=== PATIENT | female | born 1995 | race African-American/Black ===

== ENCOUNTER 2021-03-19 18:55 | Emergency (ER) | payer BC ==
--- NOTE | 2021-03-19 19:35 | EDM.PDOC ---
ED HPI GENERAL MEDICAL PROBLEM - General Chief Complaint: General Stated Complaint: COVID EXPOSURE/CHEST PAIN,CHILLS,HEADACHE Time Seen by Provider: 03/19/21 19:05 Source of Information: Reports: Patient, RN Notes Reviewed History Limitations: Reports: No Limitations - History of Present Illness INITIAL COMMENTS - FREE TEXT/NARRATIVE: Patient is a 25-year-old female who presents to the ER for evaluation of her Covid symptoms/Covid exposure. Patient notes that her did test positive yesterday for COVID-19, she was tested yesterday and was negative for yesterday's purposes. Patient states that her started demonstrating symptoms on Friday, March 16, 2021. 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 States that the is going well. The patient herself is complaining of chest pain with coughing, cough, slight shortness of breath, no actual fevers, chills, body aches and generalized fatigue. She has not taken anything for pain medication or otherwise. Vital signs are stable at time of triage, O2 sats are 100% on room air, she is afebrile, and not dyspneic. 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 ED EXAM, GENERAL - Physical Exam Exam: See Below Exam Limited By: No Limitations General Appearance: Alert, WD/WN, No Apparent Distress Respiratory/Chest: No Respiratory Distress, Lungs Clear, Normal Breath Sounds, No Accessory Muscle Use, Chest Non-Tender Cardiovascular: Normal Peripheral Pulses, Regular Rate, Rhythm, No Edema GI/Abdominal: Normal Bowel Sounds, Soft, Non-Tender, No Distention, No Mass Neurological: Alert, Oriented, Normal Cognition, No Motor/Sensory Deficits Psychiatric: Normal Affect, Normal Mood Skin Exam: Warm, Dry, Intact, Normal Color, No Rash Course - Vital Signs Last Recorded V/S: Last Vital Signs Temp 98.2 F 03/19/21 19:04 Pulse 111 H 03/19/21 19:04 Resp 12 03/19/21 19:04 BP 111/70 03/19/21 19:04 Pulse Ox 100 03/19/21 19:04 - Orders/Labs/Meds Labs: Laboratory Tests 03/19/21 Range/Units 19:43 Influenza Type A RNA Negative (NEGATIVE) Influenza Type B RNA Negative (NEGATIVE) SARS-CoV-2 RNA ([place]) Positive H (NEGATIVE) - Re-Assessments/Exams Free Text/Narrative Re-Assessment/Exam: 03/19/21 19:34 Patient presents to the ER for the evaluation of her Covid-like symptoms. For today's purposes since her clinical presentation is really good, she is not dyspneic, she has no O2 sat derangements. We will go ahead and just repeat a Covid swab for management at this time. 03/19/21 20:48 Covid screen was positive at today's visit. Departure - Departure Time of Disposition: 20:48 Disposition: Home, Self-Care 01 Condition: Good Clinical Impression: COVID-19 - Discharge Information *PRESCRIPTION DRUG MONITORING PROGRAM REVIEWED*: No *COPY OF PRESCRIPTION DRUG MONITORING REPORT IN PATIENT RIGO: No Instructions: COVID-19 Frequently Asked Questions, and COVID-19 Referrals: Mya Foley MD [Primary Care Provider] - Forms: ED Department Discharge Additional Instructions: You were seen in the ER today for ongoing and/or worsening respiratory symptoms. You were swabbed for COVID-19, and your test did result positive for tonight's purposes. You will likely be contacted by the [facility] of [facility], for quarantine/isolation length of time. Please try to increase your oral fluid intake, and eat multiple small meals throughout the day, to keep yourself healthy. You need to keep yourself nourished in order to fight off this disease. You can try a liquid diet like gatorade/powerade as well to get your electrolytes. You may take 500 mg Tylenol every hours 6 hours for pain/fever relief. Do not exceed 4000 mg Tylenol in a 24-hour time span. However, running a fever is your body's natural response to illness, and it allows the body to develop antibodies to disease, we are recommending trying to limit the use of Tylenol as much as possible to allow your body's natural immune response. Recommend you obtain a pulse oximeter and monitor your oxygen levels at home, you should place the monitor on your finger, and sit in a calm, quiet position for a few minutes and then record the number that is on the screen. If this consistently below 90% on room air without movement, this would be cause for concern to come back to the hospital for further management of your COVID-19 disease. Sepsis Event Note (ED) - Evaluation Sepsis Screening Result: No Definite Risk - Focused Exam Vital Signs: Vital Signs Temp Pulse Resp BP Pulse Ox 03/19/21 19:04 98.2 F 111 H 12 111/70 100
[2021-03-19 20:45] LABS: CORONAVIRUS COVID-19 NAA POSITIVE (NEGATIVE)
== END 2021-03-19 20:58 | disposition home or self-care (01) ==
LOC: JD.ED 18:55
DX: O98.512 Other viral diseases complicating pregnancy, second trimester (principal); U07.1 COVID-19; Z3A.23 23 weeks gestation of pregnancy
CPT/HCPCS: 0240U; 99284; 99282

== ENCOUNTER 2021-07-02 05:45 | Inpatient (IN) | payer BC ==
[2021-07-02] MEDS ORDERED: Sodium Chloride 0.9% 10 ML Syringe FLUSH PRN (07:10)
[2021-07-02] MEDS ORDERED: Nalbuphine 10 MG/1 ML Vial IVPUSH PRN (07:10)
[2021-07-02] MEDS ORDERED: Ondansetron 4 MG/2 ML SDV IVPUSH PRN ×2 (07:10→07:49)
--- NOTE | 2021-07-02 07:13 | PCM.LDHP ---
L&D History of Present Illness - General Date of Service: 07/02/21 Admit Problem/Dx: Patient Status Order with Admit Dx/Problem 07/02/21 05:52 Patient Status [ADT] Routine 07/02/21 07:10 Patient Status [ADT] Routine Admission Diagnosis/Problem Admission Diagnosis/Problem Source of Information: Patient History Limitations: Reports: No Limitations - History of Present Illness Introduction:: Patient is a at 38 0/7 wks who presents with SROM. Occurred potentially at 7:00 pm yesterday, but did continue and so she just monitored, but had a larger gush this AM around 5:00. 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: 0 LMP (Approximate): Hematologic History: Reports: Other (See Below) (Sickle cell trait) - Past Surgical History Other Surgical History Comment: No past surgical history Social & Family History - Tobacco Use Tobacco Use Status *Q: Never Tobacco User - Caffeine Use Caffeine Use: Reports: None - Alcohol Use Alcohol Use History: No - Recreational Drug Use Recreational Drug Use: No H&P Review of Systems - Review of Systems: Review Of Systems: See Below General: Reports: No Symptoms Pulmonary: Reports: No Symptoms Cardiovascular: Reports: No Symptoms Gastrointestinal: Reports: No Symptoms Genitourinary: Reports: No Symptoms Musculoskeletal: Reports: No Symptoms Psychiatric: Reports: No Symptoms Neurological: Reports: No Symptoms L&D Exam - Exam Exam: See Below - Vital Signs Weight: 74.072 kg - OB Specific Contraction Intensity: Mild Movement: Active Heart Tones: Present Heart Tones per Min: 140 Heart Rate (FHR) Variability: Moderate (6-25 bpm) Presentation: Vertex - Lemus Score Lemus Score Cervix Position: Posterior Lemsu Score Consistency: Soft Lemus Score Effacement: >80% Lemus Score Dilation: 1-2 cm Lemus Score 's Station: -1 ,0 Lemus Score Total: 8 - Exam General: Alert, Oriented, Cooperative Lungs: Clear to Auscultation, Normal Respiratory Effort Cardiovascular: Regular Rate, Regular Rhythm GI/Abdominal Exam: Soft, Non-Tender Genitourinary: Normal external exam Extremities: Normal Inspection Skin: Warm, Dry, Intact - Patient Data Lab Results Last 24 hrs: Laboratory Results - last 24 hr 07/02/21 Range/Units 06:20 Membrane Rupture Positive H Result Diagrams: 07/02/21 07:10 - Problem List (1) 38 weeks gestation of SNOMED Code(s): 03725029 ICD Code: Z3A.38 - 38 WEEKS GESTATION OF Status: Acute Current Visit: Yes (2) SROM (spontaneous rupture of membranes) SNOMED Code(s): 803359439 ICD Code: [id number] - Status: Acute Current Visit: Yes Problem List Initiated/Reviewed/Updated: Yes Orders Last 24hrs: Active Orders 24 hr Category Date Time Status Patient Status [ADT] Routine ADT 07/02/21 05:52 Active Patient Status [ADT] Routine ADT 07/02/21 07:10 Ordered Activity as Tolerated [RC] PFP Care 07/02/21 07:10 Ordered Communication Order [RC] ASDIRECTED Care 07/02/21 07:10 Ordered Heart Tones [RC] ASDIRECTED Care 07/02/21 07:11 Ordered Non Stress Test [RC] PER UNIT ROUTINE Care 07/02/21 05:52 Active Notify Provider [RC] PFP Care 07/02/21 07:10 Ordered Notify Provider [RC] PRN Care 07/02/21 07:10 Ordered Peripheral IV Care [RC] . DIRECTED Care 07/02/21 07:11 Ordered Vital Signs [RC] PER UNIT ROUTINE Care 07/02/21 05:52 Active Vital Signs [RC] PER UNIT ROUTINE Care 07/02/21 07:10 Ordered Regular Diet [DIET] Diet 07/02/21 Breakfast Ordered CBC W/O DIFF,HEMOGRAM [HEME] Routine Lab 07/02/21 07:10 Ordered CORONAVIRUS COVID-19 ANTOINETTE [MOLEC] Stat Lab 07/02/21 07:12 Ordered RAPID PLASMA REAGIN,RPR [CHEM] Routine Lab 07/02/21 07:10 Ordered TYPE AND SCREEN [BBK] Routine Lab 07/02/21 07:10 Ordered Lactated Ringers [Ringers, Lactated] 1,000 ml Med 07/02/21 07:15 Ordered IV ASDIRECTED Nalbuphine [Nubain] Med 07/02/21 07:10 Ordered 10 mg IVPUSH Q2H PRN Ondansetron [Zofran] Med 07/02/21 07:10 Ordered 4 mg IVPUSH Q4H PRN Oxytocin/Lactated Ringers [Pitocin in LR 10 Units/1,000 Med 07/02/21 07:15 Ordered ML] 10 unit in 1,000 ml IV .CONTINUOUS Sodium Chloride 0.9% [Saline Flush] Med 07/02/21 07:10 Ordered 10 ml FLUSH ASDIRECTED PRN Electronic Heart Tones Ext w TOCO [WOMSER] Oth 07/02/21 07:10 Ordered Routine Electronic Heart Tones Internal [WOMSER] Per Unit Ot 07/02/21 07:10 Ordered Routine Peripheral IV Insertion Adult [OM.PC] Routine Oth 07/02/21 07:10 Ordered Resuscitation Status Routine Resus Stat 07/02/21 05:52 Ordered Assessment/Plan Comment:: * Labs to be done * GBS negative * Pitocin for Augmentation * Pain management per patient preference * Anticipate
[2021-07-02] MEDS ORDERED: Oxytocin/Lactated Ringers 10 UNIT/1,000 ML BAG IV SCH ×2 (07:15→10:00)
[2021-07-02] MEDS ORDERED: ePHEDrine 50 MG/ML SDV IVPUSH PRN (07:49)
[2021-07-02] MEDS ORDERED: fentaNYL 100 MCG/2 ML SDV EPIDUR PRN (07:49)
--- NOTE | 2021-07-02 07:56 | PCM.PREANE ---
Preanesthetic Assessment - Procedure Proposed Procedure: Epidural - Anesthesia/Transfusion/Family Hx Anesthesia History: No Prior Anesthesia Family History of Anesthesia Reaction: No Transfusion History: No Prior Transfusion(s) Intubation History: Unknown - Review of Systems General: No Symptoms Pulmonary: No Symptoms (Covid + in 03/2021: symptoms all resolved) Cardiovascular: No Symptoms Gastrointestinal: No Symptoms (GERD) Neurological: No Symptoms, Tingling (bilateral CTS) Other: Reports: None - Physical Assessment NPO Status Date: 07/02/21 NPO Status Time: 08:30 Vital Signs: Last Vital Signs Temp 37.3 C 07/02/21 07:36 Pulse Resp BP 123/78 07/02/21 07:36 Pulse Ox 100 07/02/21 07:36 Height: 1.63 m Weight: 74.072 kg ASA Class: 2 Mental Status: Alert & Oriented x3 Airway Class: Mallampati = 2 Dentition: Reports: Normal Dentition (braces upper and lower), Caries Thyro-Mental Finger Breadths: 3 Mouth Opening Finger Breadths: 3 ROM/Head Extension: Full Lungs: Clear to Auscultation, Normal Respiratory Effort Cardiovascular: Regular Rate, Regular Rhythm, No Murmurs - Lab Values: Laboratory Last Values WBC 5.90 K/mm3 (3.98-10.04) 07/02/21 07:10 RBC 4.67 M/mm3 (3.98-5.22) 07/02/21 07:10 Hgb 11.9 gm/dl (11.2-15.7) 07/02/21 07:10 Hct 36.0 % (34.1-44.9) 07/02/21 07:10 MCV 77.1 fl (79.4-94.8) L 07/02/21 07:10 MCH 25.5 pg (25.6-32.2) L 07/02/21 07:10 MCHC 33.1 g/dl (32.2-35.5) 07/02/21 07:10 RDW Std Deviation 42.0 fL (36.4-46.3) 07/02/21 07:10 Plt Count 233 K/mm3 (182-369) 07/02/21 07:10 MPV 10.9 fl (9.4-12.3) 07/02/21 07:10 Membrane Rupture Positive H 07/02/21 06:20 Above labs reviewed and noted and within acceptable ranges to proceed with epidural if desired. 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: Reports: Other OB/BYN History: Pt is 23 weeks with first child - HOME MEDS Home Medications: Home Meds No122/Iron/Folic Acid [ Multi Tablet] 1 tab PO DAILY 03/19/21 [History] - CURRENT (IN HOUSE) MEDS Current Meds: Current Medications Ephedrine Sulfate (Ephedrine 50 Mg/Ml Sdv) 5 mg IVPUSH ASDIRECTED PRN PRN Reason: Hypotension Fentanyl (Fentanyl 100 Mcg/2 Ml Sdv) 100 mcg EPIDUR Q3H PRN PRN Reason: Pain Fentanyl/Bupivacaine HCl (Bupivacaine/Fentanyl/Ns 100 Ml Bag) 100 ml EPIDUR ASDIRECTED COMFORT Lactated Ringer's (Ringers, Lactated) 1,000 mls @ 100 mls/hr IV ASDIRECTED COMFORT Oxytocin/Lactated Ringer's (Pitocin In Lr 10 Units/1,000 Ml) 10 unit in 1,000 mls @ 500 mls/hr IV .CONTINUOUS COMFORT Miscellaneous Medication (Phenylephrine Hcl In 0.9% Nacl 1 Mg/10 Ml Syringe) 0.1 mg IVPUSH Q10M PRN PRN Reason: Hypotension Nalbuphine HCl (Nalbuphine 10 Mg/1 Ml Vial) 10 mg IVPUSH Q2H PRN PRN Reason: Pain Ondansetron HCl (Ondansetron 4 Mg/2 Ml Sdv) 4 mg IVPUSH Q4H PRN PRN Reason: Nausea/Vomiting Ondansetron HCl (Ondansetron 4 Mg/2 Ml Sdv) 4 mg IVPUSH ONETIME PRN PRN Reason: Nausea/Vomiting Sodium Chloride (Sodium Chloride 0.9% 10 Ml Syringe) 10 ml FLUSH ASDIRECTED PRN PRN Reason: Keep Vein Open
[2021-07-02] MEDS ORDERED: Bupivacaine 0.25% 10 ML SDV ONE (08:00)
[2021-07-02] MEDS ORDERED: Bupivacaine/fentaNYL/NS 100 ML Bag EPIDUR SCH (08:00)
[2021-07-02] MEDS: Lactated Ringers 1,000 ML IV SCH ×2 (08:37→15:17)
--- NOTE | 2021-07-02 17:54 | PCM.DEL ---
L & D Note - General Info Date of Service: 07/02/21 - Delivery Note Labor: Augmented by Oxytocin Delivery Outcome: Livebirth Delivery Method: Spontaneous Vaginal Delivery-Single Delivery Mode: Spontaneous Presentation: Left Occiput Anterior (NEHA) Nuchal Cord: Present (delivered quickly and so not reduced ) Anesthesia Type: Epidural Amniotic Fluid Description: Clear Episiotomy Type: None Laceration: 2nd Degree, Labial, Perineal Suture type: Vicryl Suture size: 2-0 Placenta: Intact, Spontaneous Cord: 3 Vessels Estimated Blood Loss: 100 Resuscitation Needed: Yes : Bulb Syringe, Stimulated, Warmed, Prospect Used Delivery Comments (Free Text/Narrative):: Patient found to be complete and began pushing. With maternal pushing effort head delivered from NEHA presentation. Nuchal cord present, but baby delivered quickly and so not reduced. With gentle downward traction shoulder and body delivered. Infant placed on maternal abdomen. Cord clamped and cut. Cord blood obtained. Placenta allowed time to separate and expelled intact. Inspection of perineum showed a 2nd degree vaginal/perineal laceration which was repaired with a 2-0 Vicryl. There was a small also split in the superficial labia on the left. This was repaired with a running 3-0. - General Info Date of Service: 07/02/21 - Patient Data Vitals - Most Recent: Last Vital Signs Temp 37.3 C 07/02/21 07:36 Pulse Resp BP 123/78 07/02/21 07:36 Pulse Ox 100 07/02/21 07:36 Weight - Most Recent: 74.072 kg - Exam Urinary Catheter Total Time: 0Days 0Hours - Problem List & Annotations (1) 38 weeks gestation of SNOMED Code(s): 12926580 Code(s): Z3A.38 - 38 WEEKS GESTATION OF Status: Acute Current Visit: Yes (2) SROM (spontaneous rupture of membranes) SNOMED Code(s): 849161818 Code(s): DUL9188 - Status: Acute Current Visit: Yes (3) Vaginal delivery SNOMED Code(s): 718391084 Code(s): O80 - ENCOUNTER FOR FULL-TERM UNCOMPLICATED DELIVERY Status: Acute Current Visit: Yes - Problem List Review Problem List Initiated/Reviewed/Updated: Yes - My Orders Last 24 Hours: My Active Orders 07/02/21 Breakfast Regular Diet [DIET] 07/02/21 07:10 Patient Status [ADT] Routine Activity as Tolerated [RC] PFP Communication Order [RC] ASDIRECTED Notify Provider [RC] PFP Notify Provider [RC] PRN Vital Signs [RC] PER UNIT ROUTINE Nalbuphine [Nubain] 10 mg IVPUSH Q2H PRN Ondansetron [Zofran] 4 mg IVPUSH Q4H PRN Sodium Chloride 0.9% [Saline Flush] 10 ml FLUSH ASDIRECTED PRN Electronic Heart Tones Ext w TOCO [WOMSER] Routine Electronic Heart Tones Internal [WOMSER] Per Unit Routine Peripheral IV Insertion Adult [OM.PC] Routine 07/02/21 07:11 Heart Tones [RC] ASDIRECTED Peripheral IV Care [RC] . DIRECTED 07/02/21 07:15 Lactated Ringers [Ringers, Lactated] 1,000 ml IV ASDIRECTED Oxytocin/Lactated Ringers [Pitocin in LR 10 Units/1,000 ML] 10 unit in 1,000 ml IV .CONTINUOUS 07/02/21 07:25 RAPID PLASMA REAGIN,RPR [CHEM] Routine 07/02/21 10:00 Oxytocin/Lactated Ringers [Pitocin in LR 10 Units/1,000 ML] 10 unit in 1,000 ml IV TITRATE 07/02/21 17:52 Patient Status Manage Transfer [TRANSFER] Routine - Assessment Assessment:: PPD#0 - Plan Plan:: Routine cares Breast feeding Discharge in 2 days
[2021-07-02] MEDS ORDERED: Acetaminophen 325 MG Tab PO PRN (19:32)
[2021-07-02] MEDS ORDERED: Witch Hazel Medicated Pads 40/Jar TOP PRN (19:32)
[2021-07-02] MEDS: Benzocaine/Menthol 20%-0.5% Spray 78 GM Cannister TOP PRN (20:14)
[2021-07-02] MEDS: Ibuprofen 600 MG Tab PO PRN (20:14)
[2021-07-03] MEDS: Ibuprofen 600 MG Tab PO PRN ×3 (03:35→18:21)
--- NOTE | 2021-07-03 07:19 | PCM.PNPP ---
- General Info Date of Service: 07/03/21 Functional Status: Reports: Pain Controlled, Tolerating Diet, Ambulating, Urinating - Review of Systems General: Reports: No Symptoms Pulmonary: Reports: No Symptoms Cardiovascular: Reports: No Symptoms Gastrointestinal: Reports: No Symptoms Genitourinary: Reports: No Symptoms Musculoskeletal: Reports: No Symptoms - General Info Date of Service: 07/03/21 - Patient Data Vital Signs - Most Recent: Last Vital Signs Temp 36.8 C 07/02/21 21:40 Pulse 106 H 07/02/21 21:40 Resp 16 07/02/21 21:40 BP 115/63 07/02/21 21:40 Pulse Ox 98 07/02/21 21:40 Weight - Most Recent: 74.072 kg Lab Results - Last 24 Hours: Laboratory Results - last 24 hr 07/02/21 07/02/21 07/02/21 Range/Units 07:10 07:25 07:25 WBC 5.90 (3.98-10.04) K/mm3 RBC 4.67 (3.98-5.22) M/mm3 Hgb 11.9 (11.2-15.7) gm/dl Hct 36.0 (34.1-44.9) % MCV 77.1 L (79.4-94.8) fl MCH 25.5 L (25.6-32.2) pg MCHC 33.1 (32.2-35.5) g/dl RDW Std Deviation 42.0 (36.4-46.3) fL Plt Count 233 (182-369) K/mm3 MPV 10.9 (9.4-12.3) fl RPR Non-reactive (NONREACTIVE) SARS-CoV-2 RNA ([place]) (NEGATIVE) Blood Type O POSITIVE Gel Antibody Screen Negative 07/02/21 Range/Units 07:28 WBC (3.98-10.04) K/mm3 RBC (3.98-5.22) M/mm3 Hgb (11.2-15.7) gm/dl Hct (34.1-44.9) % MCV (79.4-94.8) fl MCH (25.6-32.2) pg MCHC (32.2-35.5) g/dl RDW Std Deviation (36.4-46.3) fL Plt Count (182-369) K/mm3 MPV (9.4-12.3) fl RPR (NONREACTIVE) SARS-CoV-2 RNA ([place]) Negative (NEGATIVE) Blood Type Gel Antibody Screen Med Orders - Current: Current Medications Acetaminophen (Acetaminophen 325 Mg Tab) 650 mg PO Q4H PRN PRN Reason: mild pain or fever Benzocaine/Menthol (Benzocaine/Menthol 20%-0.5% [place] 78 Gm Cannister) 0 gm TOP ASDIRECTED PRN PRN Reason: Perineal Comfort Measure Last Admin: 07/02/21 20:14 Dose: 1 can Documented by: Docusate Sodium (Docusate Sodium 100 Mg Cap) 100 mg PO BID PRN PRN Reason: Constipation Ibuprofen (Ibuprofen 600 Mg Tab) 600 mg PO Q6H PRN PRN Reason: Mild pain or fever Last Admin: 07/03/21 03:35 Dose: 600 mg Documented by: Catalina Coy (Catalina Coy Medicated Pads 40/Jar) 1 pad TOP ASDIRECTED PRN PRN Reason: Perineal Comfort Measure Last Admin: 07/02/21 20:13 Dose: 1 jar Documented by: Discontinued Medications Ephedrine Sulfate (Ephedrine 50 Mg/Ml Sdv) 5 mg IVPUSH ASDIRECTED PRN PRN Reason: Hypotension Fentanyl (Fentanyl 100 Mcg/2 Ml Sdv) 100 mcg EPIDUR Q3H PRN PRN Reason: Pain Last Admin: 07/02/21 15:16 Dose: 100 mcg Documented by: Fentanyl/Bupivacaine HCl (Bupivacaine/Fentanyl/Ns 100 Ml Bag) 100 ml EPIDUR ASDIRECTED COMFORT Last Admin: 07/02/21 15:16 Dose: 100 ml Documented by: Lactated Ringer's (Ringers, Lactated) 1,000 mls @ 100 mls/hr IV ASDIRECTED COMFORT Last Admin: 07/02/21 15:17 Dose: 100 mls/hr Documented by: Oxytocin/Lactated Ringer's (Pitocin In Lr 10 Units/1,000 Ml) 10 unit in 1,000 mls @ 500 mls/hr IV .CONTINUOUS COMFORT Oxytocin/Lactated Ringer's (Pitocin In Lr 10 Units/1,000 Ml) 10 unit in 1,000 mls @ 12 mls/hr IV TITRATE COMFORT; Protocol Last Titration: 07/02/21 15:07 Dose: 8 munits/min, 48 mls/hr Documented by: Miscellaneous Medication (Phenylephrine Hcl In 0.9% Nacl 1 Mg/10 Ml Syringe) 0.1 mg IVPUSH Q10M PRN PRN Reason: Hypotension Nalbuphine HCl (Nalbuphine 10 Mg/1 Ml Vial) 10 mg IVPUSH Q2H PRN PRN Reason: Pain Last Admin: 07/02/21 13:50 Dose: 10 mg Documented by: Ondansetron HCl (Ondansetron 4 Mg/2 Ml Sdv) 4 mg IVPUSH Q4H PRN PRN Reason: Nausea/Vomiting Ondansetron HCl (Ondansetron 4 Mg/2 Ml Sdv) 4 mg IVPUSH ONETIME PRN PRN Reason: Nausea/Vomiting Sodium Chloride (Sodium Chloride 0.9% 10 Ml Syringe) 10 ml FLUSH ASDIRECTED PRN PRN Reason: Keep Vein Open - Interaction Disposition, : in Room with Family Interaction: Holding Feeding: Attempted ; Nursed Fair/Poor Support Person: Significant Other - Recovery Exam Fundal Tone: Firm Fundal Level: 1 Fingerbreadths Below Umbilicus Fundal Placement: Midline Lochia Amount: Scant Perineum Description: Intact, Minimal Bruising/Swelling Bladder Status: Voiding Urinary Elimination: Voided - Exam General: Alert, Oriented, Cooperative GI/Abdominal Exam: Soft, Non-Tender - Problem List & Annotations (1) 38 weeks gestation of SNOMED Code(s): 15778113 Code(s): Z3A.38 - 38 WEEKS GESTATION OF Status: Acute Current Visit: Yes (2) SROM (spontaneous rupture of membranes) SNOMED Code(s): 999039677 Code(s): PGW1587 - Status: Acute Current Visit: Yes (3) Vaginal delivery SNOMED Code(s): 322626283 Code(s): O80 - ENCOUNTER FOR FULL-TERM UNCOMPLICATED DELIVERY Status: Acute Current Visit: Yes - Problem List Review Problem List Initiated/Reviewed/Updated: Yes - My Orders Last 24 Hours: My Active Orders 07/02/21 Dinner Regular Diet [DIET] 07/02/21 19:32 Acetaminophen [TylenoL] 650 mg PO Q4H PRN Benzocaine/Menthol [Dermoplast Pain Relief 20%-0.5% [place]] See Dose Instructions TOP ASDIRECTED PRN Docusate Sodium [Colace] 100 mg PO BID PRN Ibuprofen [Motrin] 600 mg PO Q6H PRN witch Steven [Tucks] 1 pad TOP ASDIRECTED PRN Heat Therapy [OM.PC] PRN 07/02/21 19:32 Activity as Tolerated [RC] PER UNIT ROUTINE Vital Signs [RC] ASDIRECTED Assess Lochia [WOMSER] Per Unit Routine Assess Uterine Involution [WOMSER] Per Unit Routine Breast Pump [WOMSER] Per Unit Routine Ice Therapy [OM.PC] Per Unit Routine Perineal Care [OM.PC] Per Unit Routine Peripheral IV Discontinue [OM.PC] Routine Sitz Bath [OM.PC] Per Unit Routine 07/03/21 19:32 Heat Therapy [OM.PC] PRN - Assessment Assessment:: PPD#1 - Plan Plan:: Routine cares Breast feeding Discharge tomorrow
--- NOTE | 2021-07-03 15:00 | PCM48HPAN ---
Post Anesthesia Note - EVALUATION WITHIN 48HRS OF ANESTHETIC Vital Signs in Normal Range: Yes Patient Participated in Evaluation: Yes Respiratory Function Stable: Yes Airway Patent: Yes Cardiovascular Function Stable: Yes Hydration Status Stable: Yes Pain Control Satisfactory: Yes Nausea and Vomiting Control Satisfactory: Yes Mental Status Recovered: Yes Vital Signs: Last Vital Signs Temp 98.2 F 07/03/21 03:31 Pulse 94 07/03/21 03:31 Resp 16 07/02/21 21:40 BP 108/55 L 07/03/21 03:31 Pulse Ox 100 07/03/21 03:31 - COMMENTS/OBSERVATIONS Free Text/Narrative:: Patient resting in bed holding baby when visiting with patient. Patient stated that she was "very happy" with her epidural and labor experience. Patient complained of mild back pain in epidural placement site but is controlled and has not gotten worse. Discussed signs and symptoms of infection, post-dural puncture headaches, post- depression, and if patient experiences increased back discomfort. Encouraged patient if any of those signs or symptoms develop to contact OB/Anesthesia so the patient can be treated accordingly if needed. Patient verbalized understanding. Patient did not voice any questions or concerns at this time. Bonny Lauren, THRILL PERFORMER
[2021-07-03] MEDS: Docusate Sodium 100 MG Cap PO PRN (18:21)
[2021-07-03] MEDS ORDERED: Calcium Carbonate 500 MG Tab.Chew PO ONE (21:45)
--- NOTE | 2021-07-04 07:14 | PCM.DCSUM1 ---
Discharge Summary - Discharge Data Discharge Date: 07/04/21 Discharge Disposition: Home, Self-Care 01 Condition: Good - Referral to Home Health Primary Care Physician: Mya Foley MD - Discharge Diagnosis/Problem(s) (1) 38 weeks gestation of SNOMED Code(s): 59968805 ICD Code: Z3A.38 - 38 WEEKS GESTATION OF Status: Acute Current Visit: Yes (2) SROM (spontaneous rupture of membranes) SNOMED Code(s): 965428931 ICD Code: [id number] - Status: Acute Current Visit: Yes (3) Vaginal delivery SNOMED Code(s): 257340843 ICD Code: O80 - ENCOUNTER FOR FULL-TERM UNCOMPLICATED DELIVERY Status: Acute Current Visit: Yes - Patient Summary/Data Complications: None Consults: None Recommended Follow-up Testing/Procedures: Follow up in 3 weeks for check Hospital Course: 26 y/o at 38 0/7 wks who presented with PROM. Was augmented with pitocin. Progressed well. Underwent an uncomplicated . See delivery note. did well and was discharged home on PPD#2 - Patient Instructions Diet: Regular Diet as Tolerated Activity: As Tolerated Activity, Other: Pelvic rest for 6 weeks Driving: May Drive Today Showering/Bathing: May Shower Showering/Bathing, Other: May Bathe Notify Provider of: Fever, Increased Pain, Swelling and Redness, Drainage, Nausea and/or Vomiting - Discharge Plan *PRESCRIPTION DRUG MONITORING PROGRAM REVIEWED*: No *COPY OF PRESCRIPTION DRUG MONITORING REPORT IN PATIENT RIGO: No Home Medications: Home Meds No122/Iron/Folic Acid [ Multi Tablet] 1 tab PO DAILY 03/19/21 [History] Docusate Sodium [Colace] 100 mg PO BID PRN cap 07/03/21 [Rx] Ibuprofen [Motrin] 600 mg PO Q6H PRN tablet 07/03/21 [Rx] Referrals: Mya Foley MD [Primary Care Provider] - (3 weeks for check ) - Discharge Summary/Plan Comment DC Time >30 min.: No Total # of Minutes for Discharge Time: 15 - Patient Data Vitals - Most Recent: Last Vital Signs Temp 36.7 C 07/04/21 03:50 Pulse 98 07/04/21 03:50 Resp 14 07/04/21 03:50 BP 97/57 L 07/04/21 03:50 Pulse Ox 99 07/04/21 03:50 Weight - Most Recent: 74.072 kg Med Orders - Current: Current Medications Acetaminophen (Acetaminophen 325 Mg Tab) 650 mg PO Q4H PRN PRN Reason: mild pain or fever Last Admin: 07/03/21 21:44 Dose: 650 mg Documented by: Benzocaine/Menthol (Benzocaine/Menthol 20%-0.5% [place] 78 Gm Cannister) 0 gm TOP ASDIRECTED PRN PRN Reason: Perineal Comfort Measure Last Admin: 07/02/21 20:14 Dose: 1 can Documented by: Docusate Sodium (Docusate Sodium 100 Mg Cap) 100 mg PO BID PRN PRN Reason: Constipation Last Admin: 07/03/21 18:21 Dose: 100 mg Documented by: Ibuprofen (Ibuprofen 600 Mg Tab) 600 mg PO Q6H PRN PRN Reason: Mild pain or fever Last Admin: 07/03/21 18:21 Dose: 600 mg Documented by: Catalina Coy (Catalina Coy Medicated Pads 40/Jar) 1 pad TOP ASDIRECTED PRN PRN Reason: Perineal Comfort Measure Last Admin: 07/02/21 20:13 Dose: 1 jar Documented by: Discontinued Medications Bupivacaine HCl (Bupivacaine 0.25% 10 Ml Sdv) 10 ml .ROUTE .STK-MED ONE Stop: 07/02/21 08:01 Calcium Carbonate/Glycine (Calcium Carbonate 500 Mg Tab.Chew) 1,000 mg PO ONETIME ONE Stop: 07/03/21 21:46 Last Admin: 07/03/21 22:32 Dose: 1,000 mg Documented by: Ephedrine Sulfate (Ephedrine 50 Mg/Ml Sdv) 5 mg IVPUSH ASDIRECTED PRN PRN Reason: Hypotension Fentanyl (Fentanyl 100 Mcg/2 Ml Sdv) 100 mcg EPIDUR Q3H PRN PRN Reason: Pain Last Admin: 07/02/21 15:16 Dose: 100 mcg Documented by: Fentanyl/Bupivacaine HCl (Bupivacaine/Fentanyl/Ns 100 Ml Bag) 100 ml EPIDUR ASDIRECTED [facility] Last Admin: 07/02/21 15:16 Dose: 100 ml Documented by: Lactated Ringer's (Ringers, Lactated) 1,000 mls @ 100 mls/hr IV ASDIRECTED COMFORT Last Admin: 07/02/21 15:17 Dose: 100 mls/hr Documented by: Oxytocin/Lactated Ringer's (Pitocin In Lr 10 Units/1,000 Ml) 10 unit in 1,000 mls @ 500 mls/hr IV .CONTINUOUS COMFORT Oxytocin/Lactated Ringer's (Pitocin In Lr 10 Units/1,000 Ml) 10 unit in 1,000 mls @ 12 mls/hr IV TITRATE COMFORT; Protocol Last Titration: 07/02/21 15:07 Dose: 8 munits/min, 48 mls/hr Documented by: Miscellaneous Medication (Phenylephrine Hcl In 0.9% Nacl 1 Mg/10 Ml Syringe) 0.1 mg IVPUSH Q10M PRN PRN Reason: Hypotension Nalbuphine HCl (Nalbuphine 10 Mg/1 Ml Vial) 10 mg IVPUSH Q2H PRN PRN Reason: Pain Last Admin: 07/02/21 13:50 Dose: 10 mg Documented by: Ondansetron HCl (Ondansetron 4 Mg/2 Ml Sdv) 4 mg IVPUSH Q4H PRN PRN Reason: Nausea/Vomiting Ondansetron HCl (Ondansetron 4 Mg/2 Ml Sdv) 4 mg IVPUSH ONETIME PRN PRN Reason: Nausea/Vomiting Sodium Chloride (Sodium Chloride 0.9% 10 Ml Syringe) 10 ml FLUSH ASDIRECTED PRN PRN Reason: Keep Vein Open
--- NOTE | 2021-07-04 07:14 | PCM.PNPP ---
- General Info Date of Service: 07/04/21 Functional Status: Reports: Pain Controlled, Tolerating Diet, Ambulating, Urinating - Review of Systems General: Reports: No Symptoms Pulmonary: Reports: No Symptoms Cardiovascular: Reports: No Symptoms Gastrointestinal: Reports: No Symptoms Genitourinary: Reports: No Symptoms Musculoskeletal: Reports: No Symptoms Neurological: Reports: No Symptoms - General Info Date of Service: 07/04/21 - Patient Data Vital Signs - Most Recent: Last Vital Signs Temp 36.7 C 07/04/21 03:50 Pulse 98 07/04/21 03:50 Resp 14 07/04/21 03:50 BP 97/57 L 07/04/21 03:50 Pulse Ox 99 07/04/21 03:50 Weight - Most Recent: 74.072 kg Med Orders - Current: Current Medications Acetaminophen (Acetaminophen 325 Mg Tab) 650 mg PO Q4H PRN PRN Reason: mild pain or fever Last Admin: 07/03/21 21:44 Dose: 650 mg Documented by: Benzocaine/Menthol (Benzocaine/Menthol 20%-0.5% [place] 78 Gm Cannister) 0 gm TOP ASDIRECTED PRN PRN Reason: Perineal Comfort Measure Last Admin: 07/02/21 20:14 Dose: 1 can Documented by: Docusate Sodium (Docusate Sodium 100 Mg Cap) 100 mg PO BID PRN PRN Reason: Constipation Last Admin: 07/03/21 18:21 Dose: 100 mg Documented by: Ibuprofen (Ibuprofen 600 Mg Tab) 600 mg PO Q6H PRN PRN Reason: Mild pain or fever Last Admin: 07/03/21 18:21 Dose: 600 mg Documented by: Catalina Coy (Catalina Coy Medicated Pads 40/Jar) 1 pad TOP ASDIRECTED PRN PRN Reason: Perineal Comfort Measure Last Admin: 07/02/21 20:13 Dose: 1 jar Documented by: Discontinued Medications Bupivacaine HCl (Bupivacaine 0.25% 10 Ml Sdv) 10 ml .ROUTE .STK-MED ONE Stop: 07/02/21 08:01 Calcium Carbonate/Glycine (Calcium Carbonate 500 Mg Tab.Chew) 1,000 mg PO ONETIME ONE Stop: 07/03/21 21:46 Last Admin: 07/03/21 22:32 Dose: 1,000 mg Documented by: Ephedrine Sulfate (Ephedrine 50 Mg/Ml Sdv) 5 mg IVPUSH ASDIRECTED PRN PRN Reason: Hypotension Fentanyl (Fentanyl 100 Mcg/2 Ml Sdv) 100 mcg EPIDUR Q3H PRN PRN Reason: Pain Last Admin: 07/02/21 15:16 Dose: 100 mcg Documented by: Fentanyl/Bupivacaine HCl (Bupivacaine/Fentanyl/Ns 100 Ml Bag) 100 ml EPIDUR ASDIRECTED COMFORT Last Admin: 07/02/21 15:16 Dose: 100 ml Documented by: Lactated Ringer's (Ringers, Lactated) 1,000 mls @ 100 mls/hr IV ASDIRECTED COMFORT Last Admin: 07/02/21 15:17 Dose: 100 mls/hr Documented by: Oxytocin/Lactated Ringer's (Pitocin In Lr 10 Units/1,000 Ml) 10 unit in 1,000 mls @ 500 mls/hr IV .CONTINUOUS COMFORT Oxytocin/Lactated Ringer's (Pitocin In Lr 10 Units/1,000 Ml) 10 unit in 1,000 mls @ 12 mls/hr IV TITRATE COMFORT; Protocol Last Titration: 07/02/21 15:07 Dose: 8 munits/min, 48 mls/hr Documented by: Miscellaneous Medication (Phenylephrine Hcl In 0.9% Nacl 1 Mg/10 Ml Syringe) 0.1 mg IVPUSH Q10M PRN PRN Reason: Hypotension Nalbuphine HCl (Nalbuphine 10 Mg/1 Ml Vial) 10 mg IVPUSH Q2H PRN PRN Reason: Pain Last Admin: 07/02/21 13:50 Dose: 10 mg Documented by: Ondansetron HCl (Ondansetron 4 Mg/2 Ml Sdv) 4 mg IVPUSH Q4H PRN PRN Reason: Nausea/Vomiting Ondansetron HCl (Ondansetron 4 Mg/2 Ml Sdv) 4 mg IVPUSH ONETIME PRN PRN Reason: Nausea/Vomiting Sodium Chloride (Sodium Chloride 0.9% 10 Ml Syringe) 10 ml FLUSH ASDIRECTED PRN PRN Reason: Keep Vein Open - Interaction Disposition, : Welcome in Room with Family Interaction: Holding Infant Feeding: Attempted ; Nursed Fair/Poor Support Person: Significant Other - Recovery Exam Fundal Tone: Firm Fundal Level: 1 Fingerbreadths Below Umbilicus Fundal Placement: Midline Lochia Amount: Small Lochia Color: Rubra/Red Perineum Description: Other (see below) Other Perinuem Description: 2nd degree laceration with repair Episiotomy/Laceration: Approximated Bladder Status: Voiding Urinary Elimination: Voided - Exam General: Alert, Oriented, Cooperative GI/Abdominal Exam: Soft, Non-Tender - Problem List & Annotations (1) 38 weeks gestation of SNOMED Code(s): 57229208 Code(s): Z3A.38 - 38 WEEKS GESTATION OF Status: Acute Current Visit: Yes (2) SROM (spontaneous rupture of membranes) SNOMED Code(s): 292026003 Code(s): GWF0078 - Status: Acute Current Visit: Yes (3) Vaginal delivery SNOMED Code(s): 325674069 Code(s): O80 - ENCOUNTER FOR FULL-TERM UNCOMPLICATED DELIVERY Status: Acute Current Visit: Yes - Problem List Review Problem List Initiated/Reviewed/Updated: Yes - My Orders Last 24 Hours: My Active Orders 07/03/21 19:32 Heat Therapy [OM.PC] PRN 07/04/21 07:14 Ready for Discharge [RC] PER UNIT ROUTINE - Assessment Assessment:: PPD#2 - Plan Plan:: Routine cares Breast feeding Discharge today
[2021-07-04] MEDS: Docusate Sodium 100 MG Cap PO PRN (07:34)
[2021-07-04] MEDS: Benzocaine/Menthol 20%-0.5% Spray 78 GM Cannister TOP PRN (07:34)
[2021-07-04] MEDS: Ibuprofen 600 MG Tab PO PRN (12:12)
== END 2021-07-04 12:30 | disposition home or self-care (01) | DRG 560 ==
LOC: JD.OBCHECK 05:45 → JD.OB 05:49 → JD.OBCHECK 07:10 → OBSVTOIN 17:35 → JD.OB 17:36
PROVIDERS: ADMIT Obstetrics & Gynecology; ATTEND Obstetrics & Gynecology
PROC: 10E0XZZ Delivery of Products of Conception, External Approach (ICD-10-PCS; principal; 2021-07-02)
PROC: 0KQM0ZZ Repair Perineum Muscle, Open Approach (ICD-10-PCS; 2021-07-02)
PROC: 3E0R3BZ Introduction of Anesthetic Agent into Spinal Canal, Percutaneous Approach (ICD-10-PCS; 2021-07-02)
DX: O69.81X0 Labor and delivery complicated by cord around neck, without compression, not applicable or unspecified (principal); Z3A.38 38 weeks gestation of pregnancy; Z37.0 Single live birth; O70.1 Second degree perineal laceration during delivery; Z20.822 Contact with and (suspected) exposure to COVID-19
CPT/HCPCS: 01967; 36415; 51702; 59025; 59409; 84112; 85027; 86592; 86850; 86900; 86901; A9270-GY; J2300; J2590; J3010; J3490; J7120; U0002

== ENCOUNTER 2021-08-16 01:29 | Emergency (ER) | payer BC ==
[2021-08-16] MEDS ORDERED: Ondansetron 4 MG/2 ML SDV IVPUSH ONE (01:49)
[2021-08-16] MEDS ORDERED: Sodium Chloride 0.9% 1,000 ML IV STA (01:49)
[2021-08-16] MEDS ORDERED: Sodium Chloride 0.9% 10 ML Syringe FLUSH PRN (01:49)
[2021-08-16] MEDS ORDERED: Famotidine 20 MG/2 ML SDV IVPUSH ONE (01:50)
[2021-08-16] MEDS ORDERED: HYDROmorphone 0.5 MG/0.5 ML Syringe IVPUSH ONE (01:50)
--- NOTE | 2021-08-16 01:54 | EDM.PDOC ---
ED HPI GENERAL MEDICAL PROBLEM - General Chief Complaint: Abdominal Pain Stated Complaint: DIFFICULTY BREATHING/ABD PAIN Time Seen by Provider: 08/16/21 01:42 Source of Information: Reports: Patient History Limitations: Reports: No Limitations - History of Present Illness INITIAL COMMENTS - FREE TEXT/NARRATIVE: The patient presents with upper abdominal pain, nausea and vomiting. This started about an hour before arrival. She is about 6 weeks post delivery of her baby. This is her first period. She has no fever, chills, cough, chest pain, shortness of breath, dysuria or hematuria. She still has her gallbladder and appendix. Onset: Gradual Duration: Hour(s): (1) Location: Reports: Abdomen Quality: Reports: Sharp, Stabbing Severity: Severe Improves with: Reports: None Worsens with: Reports: None Associated Symptoms: Reports: Nausea/Vomiting. Denies: Cough, Fever/Chills, Headaches, Loss of Appetite, Shortness of Breath - Related Data Allergies Allergy/AdvReac Type Severity Reaction Status Date / Time No Known Allergies Allergy Verified 03/23/21 20:30 Home Meds: Home Meds No122/Iron/Folic Acid [ Multi Tablet] 1 tab PO DAILY 03/19/21 [History] Docusate Sodium [Colace] 100 mg PO BID PRN cap 07/03/21 [Rx] Ibuprofen [Motrin] 600 mg PO Q6H PRN tablet 07/03/21 [Rx] Omeprazole Magnesium [Prilosec Otc] 20 mg PO DAILY #14 tablet. 08/16/21 [Rx] Past Medical History - Past Health History Medical/Surgical History: Denies Medical/Surgical History FUR TINTER History: Reports: Other FUR TINTER History: Pt is 23 weeks with first child Hematologic History: Reports: Other (See Below) - Infectious Disease History Infectious Disease History: Reports: Novel Coronavirus - Past Surgical History Other Surgical History Comment: No past surgical history Social & Family History - Family History Family Medical History: No Pertinent Family History - Tobacco Use Tobacco Use Status *Q: Never Tobacco User - Caffeine Use Caffeine Use: Reports: None - Recreational Drug Use Recreational Drug Use: No ED ROS GENERAL - Review of Systems Review Of Systems: See Below Constitutional: Reports: No Symptoms HEENT: Reports: No Symptoms Respiratory: Reports: No Symptoms Cardiovascular: Reports: No Symptoms Endocrine: Reports: No Symptoms GI/Abdominal: Reports: Abdominal Pain, Nausea, Vomiting. Denies: Diarrhea : Reports: No Symptoms Musculoskeletal: Reports: No Symptoms Skin: Reports: No Symptoms Neurological: Reports: No Symptoms ED EXAM, GI/ABD - Physical Exam Exam: See Below Exam Limited By: No Limitations General Appearance: Alert, No Apparent Distress Ears: Normal External Exam Nose: Normal Inspection Head: Atraumatic, Normocephalic Neck: Normal Inspection Respiratory/Chest: No Respiratory Distress, Lungs Clear, Normal Breath Sounds Cardiovascular: Regular Rate, Rhythm, No Edema, No Murmur GI/Abdominal Exam: Normal Bowel Sounds, Soft, No Organomegaly, Tender (Moderate tenderness to the upper abdomen) Back Exam: Normal Inspection Extremities: Normal Inspection Course - Vital Signs Last Recorded V/S: Last Vital Signs Temp 95.6 F L 08/16/21 01:36 Pulse 83 08/16/21 01:36 Resp 22 H 08/16/21 01:36 BP 126/76 08/16/21 01:36 Pulse Ox 100 08/16/21 01:36 - Orders/Labs/Meds Orders: Active Orders 24 hr Category Date Time Status Peripheral IV Care [RC] . DIRECTED Care 08/16/21 01:49 Active Abdomen Pelvis w Cont [CT] Stat Exams 08/16/21 01:49 Taken Sodium Chloride 0.9% [Saline Flush] Med 08/16/21 01:49 Active 10 ml FLUSH ASDIRECTED PRN ED Antiemetic Medication Reflex [OM.PC] Stat Oth 08/16/21 01:49 Ordered Peripheral IV Insertion Adult [OM.PC] Stat Oth 08/16/21 01:49 Ordered Medication Orders Sodium Chloride (Sodium Chloride 0.9% 10 Ml Syringe) 10 ml FLUSH ASDIRECTED PRN PRN Reason: Keep Vein Open Last Admin: 08/16/21 02:15 Dose: 10 ml Documented by: KADEEM Labs: Laboratory Tests 08/16/21 08/16/21 08/16/21 Range/Units 02:35 02:35 02:35 WBC 5.10 (3.98-10.04) K/mm3 RBC 5.26 H (3.98-5.22) M/mm3 Hgb 13.3 (11.2-15.7) gm/dl Hct 40.9 (34.1-44.9) % MCV 77.8 L (79.4-94.8) fl MCH 25.3 L (25.6-32.2) pg MCHC 32.5 (32.2-35.5) g/dl RDW Std Deviation 45.9 (36.4-46.3) fL Plt Count 218 (182-369) K/mm3 MPV 10.7 (9.4-12.3) fl Neut % (Auto) 48.4 (34.0-71.1) % Lymph % (Auto) 43.7 (19.3-51.7) % [place] % (Auto) 6.1 (4.7-12.5) % Eos % (Auto) 1.2 (0.7-5.8) Baso % (Auto) 0.6 (0.1-1.2) % Neut # (Auto) 2.47 (1.56-6.13) K/mm3 Lymph # (Auto) 2.23 (1.18-3.74) K/mm3 [place] # (Auto) 0.31 (0.24-0.36) K/mm3 Eos # (Auto) 0.06 (0.04-0.36) K/mm3 Baso # (Auto) 0.03 (0.01-0.08) K/mm3 Sodium 139 (136-145) mEq/L Potassium 4.2 (3.5-5.1) mEq/L Chloride 105 (98-107) mEq/L Carbon Dioxide 25 (21-32) mEq/L Anion Gap 13.2 (5-15) BUN 15 (7-18) mg/dL Creatinine 0.8 (0.55-1.02) mg/dL Est Cr Clr Drug Dosing 92.02 mL/min Estimated GFR (MDRD) > 60 (>60) mL/min BUN/Creatinine Ratio 18.8 H (14-18) Glucose 104 H (70-99) mg/dL Calcium 8.2 L (8.5-10.1) mg/dL Total Bilirubin 0.3 (0.2-1.0) mg/dL AST 84 H (15-37) U/L ALT 50 (14-59) U/L Alkaline Phosphatase 88 (46-116) U/L Total Protein 7.3 (6.4-8.2) g/dl Albumin 3.5 (3.4-5.0) g/dl Globulin 3.8 gm/dL Albumin/Globulin Ratio 0.9 L (1-2) Lipase 146 (73-393) U/L HCG, Qual Negative (NEGATIVE) Urine Color (Yellow) Urine Appearance (Clear) Urine pH (5.0-8.0) Ur Specific [place] (1.005-1.030) Urine Protein (Negative) Urine Glucose (UA) (Negative) Urine Ketones (Negative) Urine Occult Blood (Negative) Urine Nitrite (Negative) Urine Bilirubin (Negative) Urine Urobilinogen (0.2-1.0) Ur Leukocyte Esterase (Negative) Urine RBC (0-5) /hpf Urine WBC (0-5) /hpf Ur Squamous Epith Cells (0-5) /hpf Urine Bacteria (FEW) /hpf Urine Mucus (FEW) /hpf 08/16/21 Range/Units 03:30 WBC (3.98-10.04) K/mm3 RBC (3.98-5.22) M/mm3 Hgb (11.2-15.7) gm/dl Hct (34.1-44.9) % MCV (79.4-94.8) fl MCH (25.6-32.2) pg MCHC (32.2-35.5) g/dl RDW Std Deviation (36.4-46.3) fL Plt Count (182-369) K/mm3 MPV (9.4-12.3) fl Neut % (Auto) (34.0-71.1) % Lymph % (Auto) (19.3-51.7) % [place] % (Auto) (4.7-12.5) % Eos % (Auto) (0.7-5.8) Baso % (Auto) (0.1-1.2) % Neut # (Auto) (1.56-6.13) K/mm3 Lymph # (Auto) (1.18-3.74) K/mm3 [place] # (Auto) (0.24-0.36) K/mm3 Eos # (Auto) (0.04-0.36) K/mm3 Baso # (Auto) (0.01-0.08) K/mm3 Sodium (136-145) mEq/L Potassium (3.5-5.1) mEq/L Chloride (98-107) mEq/L Carbon Dioxide (21-32) mEq/L Anion Gap (5-15) BUN (7-18) mg/dL Creatinine (0.55-1.02) mg/dL Est Cr Clr Drug Dosing mL/min Estimated GFR (MDRD) (>60) mL/min BUN/Creatinine Ratio (14-18) Glucose (70-99) mg/dL Calcium (8.5-10.1) mg/dL Total Bilirubin (0.2-1.0) mg/dL AST (15-37) U/L ALT (14-59) U/L Alkaline Phosphatase (46-116) U/L Total Protein (6.4-8.2) g/dl Albumin (3.4-5.0) g/dl Globulin gm/dL Albumin/Globulin Ratio (1-2) Lipase (73-393) U/L HCG, Qual (NEGATIVE) Urine Color Yellow (Yellow) Urine Appearance Slt cloudy H (Clear) Urine pH 6.0 (5.0-8.0) Ur Specific [place] 1.015 (1.005-1.030) Urine Protein Negative (Negative) Urine Glucose (UA) Negative (Negative) Urine Ketones Negative (Negative) Urine Occult Blood 3+ H (Negative) Urine Nitrite Negative (Negative) Urine Bilirubin Negative (Negative) Urine Urobilinogen 0.2 (0.2-1.0) Ur Leukocyte Esterase Negative (Negative) Urine RBC 50-75 H (0-5) /hpf Urine WBC Not seen (0-5) /hpf Ur Squamous Epith Cells 0-5 (0-5) /hpf Urine Bacteria Rare (FEW) /hpf Urine Mucus Rare (FEW) /hpf Meds: Medications Generic Name Dose Route Start Last Admin Trade Name Freq PRN Reason Stop Dose Admin Sodium Chloride 10 ml 08/16/21 01:49 08/16/21 02:15 Sodium Chloride 0.9% 10 Ml Syringe FLUSH 10 ml ASDIRECTED PRN Administration Keep Vein Open Discontinued Medications Generic Name Dose Route Start Last Admin Trade Name Freq PRN Reason Stop Dose Admin Famotidine 20 mg 08/16/21 01:50 08/16/21 02:08 Famotidine 20 Mg/2 Ml Sdv IVPUSH 08/16/21 01:51 20 mg ONETIME ONE Administration Hydromorphone HCl 0.5 mg 08/16/21 01:50 08/16/21 02:09 Hydromorphone 0.5 Mg/0.5 Ml Syringe IVPUSH 08/16/21 01:51 0.5 mg ONETIME ONE Administration Sodium Chloride 1,000 mls @ 1,000 mls/hr 08/16/21 01:49 08/16/21 02:05 Normal Saline IV 08/16/21 02:48 1,000 mls/hr .BOLUS STA Administration Ondansetron HCl 4 mg 08/16/21 01:49 08/16/21 02:06 Ondansetron 4 Mg/2 Ml Sdv IVPUSH 08/16/21 01:50 4 mg ONETIME ONE Administration - Re-Assessments/Exams Free Text/Narrative Re-Assessment/Exam: 08/16/21 01:53 I ordered an IV NS 1L bolus, zofran 4mg IV, dilaudid 0.5mg IV, labs, UA and a CT of her abdomen and pelvis with IV and oral contrast. 08/16/21 04:16 Her CBC and CMP look good. Her lipase is normal. Her HCG is negative. Her UA shows blood but no UTI. Her CT shows no definite acute change identified. 08/16/21 04:19 She feels better. I will discharge her home with some prilosec. I feel she may have had some gastritis. Departure - Departure Time of Disposition: 04:20 Disposition: Home, Self-Care 01 Condition: Good Clinical Impression: Abdominal pain Qualifiers: Abdominal location: upper abdomen, unspecified Qualified Code(s): R10.10 - Upper abdominal pain, unspecified - Discharge Information *PRESCRIPTION DRUG MONITORING PROGRAM REVIEWED*: Not Applicable *COPY OF PRESCRIPTION DRUG MONITORING REPORT IN PATIENT RIGO: Not Applicable Prescriptions: Omeprazole Magnesium [Prilosec Otc] 20 mg PO DAILY #14 tablet. Referrals: PCP,None [Primary Care Provider] - Forms: ED Department Discharge Additional Instructions: Drink plenty of fluids. Take the prilosec daily for 2 weeks. Try to eat bland food for a few days. Follow up with your provider within a week. Please return if you are worse. Sepsis Event Note (ED) - Evaluation Sepsis Screening Result: Possible Sepsis Risk - Focused Exam Vital Signs: Vital Signs Temp Pulse Resp BP Pulse Ox 08/16/21 01:36 95.6 F L 83 22 H 126/76 100 - My Orders Last 24 Hours: My Active Orders 08/16/21 01:49 Peripheral IV Care [RC] . DIRECTED Abdomen Pelvis w Cont [CT] Stat Sodium Chloride 0.9% [Saline Flush] 10 ml FLUSH ASDIRECTED PRN ED Antiemetic Medication Reflex [OM.PC] Stat Peripheral IV Insertion Adult [OM.PC] Stat - Assessment/Plan Last 24 Hours: My Active Orders 08/16/21 01:49 Peripheral IV Care [RC] . DIRECTED Abdomen Pelvis w Cont [CT] Stat Sodium Chloride 0.9% [Saline Flush] 10 ml FLUSH ASDIRECTED PRN ED Antiemetic Medication Reflex [OM.PC] Stat Peripheral IV Insertion Adult [OM.PC] Stat
--- NOTE | 2021-08-16 08:31 | CT ---
CT abdomen and pelvis Technique: Multiple axial sections were obtained from above the dome of the diaphragm inferiorly through the pubic symphysis. Intravenous and oral contrast were utilized. Delayed images were also obtained through the abdomen and pelvis. Comparison: No prior abdominal imaging is available. Findings: Visualized lung bases showed nothing acute. Liver contains no focal parenchymal abnormality. Spleen size is normal. Adrenal glands show no nodule. Pancreas is within normal limits. Gallbladder contains no calcified gallstones. Abdominal aorta shows no aneurysm. No retroperitoneal adenopathy or mesenteric abnormalities are seen. No pelvic mass or adenopathy is seen. Kidneys show symmetric contrast enhancement. Delayed images show a parapelvic cyst within the left kidney measuring about 1.4 cm. There is excretion of contrast into both ureters and into the bladder. Appendix is seen which is normal in size. No bowel dilatation or bowel wall thickening is seen. Bone window settings were reviewed which show no acute osseous finding. Impression: 1. Small parapelvic cyst within the left kidney. 2. Nothing acute is seen on CT study of the abdomen and pelvis. Diagnostic code #2 I agree with preliminary report from [facility], finalized on 08/16/21, 4:55 AM [employer], code 1
== END 2021-08-16 04:38 | disposition home or self-care (01) ==
LOC: JD.ED 01:29
DX: R10.10 Upper abdominal pain, unspecified (principal); R11.2 Nausea with vomiting, unspecified; Z79.899 Other long term (current) drug therapy
CPT/HCPCS: 36415; 74177; 80053; 81001; 83690; 84703; 85025; 96374; 96375; 99284; J1170; J2405; J3490; J7030

== ENCOUNTER 2021-09-10 09:04 | Day surgery (SDC) | payer BC ==
[~2021-09-10 09:04] MED LIST: Lactated Ringers 1,000 ML IV SCH; Lidocaine 1%/Sod Bicarbonate in NS 8.4% 1 ML Syringe IDERM PRN; Sodium Chloride 0.9% 10 ML Syringe FLUSH SCH
[2021-09-10] MEDS ORDERED: Lidocaine 1% with EPINEPHrine 1:100,000 10 ML MDV ONE (10:02)
[2021-09-10] MEDS ORDERED: Bupivacaine 0.5% 10 ML SDV ONE (10:02)
[2021-09-10] MEDS ORDERED: Rocuronium 50 MG/5 ML Vial ONE (10:13)
[2021-09-10] MEDS ORDERED: Midazolam 1 MG/ML 2 ML SDV ONE (10:13)
[2021-09-10] MEDS ORDERED: Propofol 200 MG/20 ML SDV ONE (10:13)
[2021-09-10] MEDS ORDERED: fentaNYL 100 MCG/2 ML SDV ONE (10:13)
[2021-09-10] MEDS ORDERED: Lidocaine 2% 100 MG/5 ML Syringe ONE (10:13)
[2021-09-10] MEDS ORDERED: Ondansetron 4 MG/2 ML SDV ONE (11:03)
[2021-09-10] MEDS ORDERED: oxyCODONE 5 MG Tab PO ONE (12:30)
== END 2021-09-10 14:16 | disposition home or self-care (01) ==
LOC: JD.SDS 09:04
PROVIDERS: ATTEND Surgery
DX: K64.1 Second degree hemorrhoids (principal); K64.4 Residual hemorrhoidal skin tags; Z79.899 Other long term (current) drug therapy
CPT/HCPCS: 46260; 81025; A9270; J2250; J2370; J2405; J2704; J2710; J3010; J3490; J7120; 00902

== ENCOUNTER 2021-09-18 13:58 | Emergency (ER) | payer BC ==
[2021-09-18] MEDS ORDERED: Alum Hydrox/Mag Hydrox/Simeth 30 ML, Lidocaine 2% 15 ML PO ONE ×2 (14:20)
== END 2021-09-18 15:28 | disposition home or self-care (01) ==
LOC: JD.ED 13:58
DX: K29.00 Acute gastritis without bleeding (principal); Z86.16 Personal history of COVID-19
CPT/HCPCS: 36415; 80053; 83690; 85025; 99283; 99284; A9270-GY

== ENCOUNTER 2025-01-23 18:40 | Emergency (ER) | payer MEDICAID, OTHER ==
[2025-01-23] MEDS: Acetaminophen 325 MG Tab PO ONE (19:54)
[2025-01-23] MEDS: Sodium Chloride 0.9% 1,000 ML IV SCH (19:54)
[2025-01-23 20:15] LABS: BASOPHILS PERCENT AUTO 0.7 % (0.0-1.0); HEMOGLOBIN 11.7 gm/dl (12.0-16.0); IMMATURE GRAN ABSOLUTE AUTO 0.06 K/mm3 (0.00-0.05); IMMATURE GRAN PERCENT AUTO 1.5 % (0.0-0.4); LYMPHOCYTES ABSOLUTE AUTO 0.4 K/mm3 (1.0-4.8); LYMPHOCYTES PERCENT AUTO 10.6 % (24.0-44.0); MEAN CORPUSCULAR HEMOGLOBIN 27.4 pg (28.0-32.0); MEAN CORPUSCULAR HGB CONC 34.4 g/dl (32.0-36.0); MEAN CORPUSCULAR VOLUME 79.6 fl (83.0-99.0); MEAN PLATELET VOLUME 10.3 fl (9.4-12.3); MONOCYTES ABSOLUTE AUTO 0.5 K/mm3 (0.0-0.8); MONOCYTES PERCENT AUTO 12.6 % (0.0-8.0); NEUTROPHILS PERCENT AUTO 74.6 % (41.0-71.0); PLATELET COUNT,PLT 175 K/mm3 (150-400); RED BLOOD CELL COUNT 4.27 M/mm3 (4.10-5.30); WHITE BLOOD CELL COUNT,WBC 4.05 K/mm3 (3.9-11.3)
[2025-01-23 20:37] LABS: A/G RATIO 0.7 (1-2); ALBUMIN 3.1 g/dl (3.4-5.0); ANION GAP 15.3 (5-15); BILIRUBIN TOTAL 0.2 mg/dL (0.2-1.0); BUN/CREATININE RATIO 6.7 (14-18); CREATININE 0.6 mg/dL (0.55-1.02); EST CRCL DRUG DOSING (CG) 109.42 mL/min; POTASSIUM,K 3.3 mEq/L (3.5-5.1); PROTEIN TOTAL,TP 7.4 g/dl (6.4-8.2)
[2025-01-23 20:51] LABS: LACTIC ACID 0.7 mmol/L (0.4-2.0)
[2025-01-23] MEDS: Sodium Chloride 0.9% 10 ML Syringe FLUSH PRN (20:51)
[2025-01-23] MEDS: Potassium Chloride 20 MEQ Tab.ER PO ONE (21:02)
== END 2025-01-23 21:32 | disposition home or self-care (01) ==
LOC: JD.ED 18:40
DX: O99.891 Other specified diseases and conditions complicating pregnancy (principal); R10.30 Lower abdominal pain, unspecified; R50.9 Fever, unspecified; Z86.16 Personal history of COVID-19; Z79.899 Other long term (current) drug therapy; Z3A.21 21 weeks gestation of pregnancy
CPT/HCPCS: 36415; 76815; 80053; 83605; 85025; 86308; 93005; 96360; 99284; A9270; J7030; 93010

== ENCOUNTER 2025-05-17 01:42 | Inpatient (IN) | payer MEDICAID ==
[2025-05-17] MEDS ORDERED: Nalbuphine 10 MG/1 ML Vial IVPUSH PRN (02:25)
[2025-05-17] MEDS ORDERED: Ondansetron 4 MG/2 ML SDV IVPUSH PRN (02:25)
[2025-05-17] MEDS ORDERED: Sodium Chloride 0.9% 10 ML Syringe FLUSH PRN (02:25)
[2025-05-17] MEDS: Lactated Ringers 1,000 ML IV SCH (02:30)
[2025-05-17] MEDS ORDERED: Oxytocin/0.9 % Sodium Chloride 30 UNIT/500 ML BAG IV SCH (02:30)
[2025-05-17 02:56] LABS: BASOPHILS ABSOLUTE AUTO 0.0 K/mm3 (0.0-0.2); BASOPHILS PERCENT AUTO 0.5 % (0.0-1.0); EOSINOPHILS ABSOLUTE AUTO 0.1 K/mm3 (0.0-0.4); EOSINOPHILS PERCENT AUTO 1.0 % (0.0-6.0); IMMATURE GRAN ABSOLUTE AUTO 0.01 K/mm3 (0.00-0.05); IMMATURE GRAN PERCENT AUTO 0.2 % (0.0-0.4); LYMPHOCYTES ABSOLUTE AUTO 1.6 K/mm3 (1.0-4.8); LYMPHOCYTES PERCENT AUTO 26.5 % (24.0-44.0); MEAN PLATELET VOLUME 10.6 fl (9.4-12.3); MONOCYTES ABSOLUTE AUTO 0.5 K/mm3 (0.0-0.8); MONOCYTES PERCENT AUTO 8.1 % (0.0-8.0); NEUTROPHILS ABSOLUTE AUTO 3.9 K/mm3 (1.8-7.7); NEUTROPHILS PERCENT AUTO 63.7 % (41.0-71.0); NRBC ABSOLUTE 0.00 (0.00-0.02); NRBC PERCENT 0.0 % (0.0-0.2); PLATELET COUNT,PLT 189 K/mm3 (150-400); RED BLOOD CELL COUNT 4.44 M/mm3 (4.10-5.30); WHITE BLOOD CELL COUNT,WBC 6.18 K/mm3 (3.9-11.3)
[2025-05-17] MEDS ORDERED: diphenhydrAMINE 50 MG/ML SDV IVPUSH PRN (02:58)
[2025-05-17] MEDS: Bupivacaine/fentaNYL/NS 100 ML Bag EPIDUR PRN (03:18)
[2025-05-17] MEDS: ePHEDrine 50 MG/ML SDV IVPUSH PRN (03:35)
[2025-05-17] MEDS: ePHEDrine 50 MG/ML SDV IM PRN (04:39)
[2025-05-17] MEDS: Oxytocin/0.9 % Sodium Chloride 30 UNIT/500 ML BAG IV SCH (04:47)
[2025-05-17] MEDS: Benzocaine/Menthol 20%-0.5% Spray 78 GM Cannister TOP PRN (13:04)
[2025-05-17] MEDS: Witch Hazel Medicated Pads 40/Jar TOP PRN (13:04)
[2025-05-17] MEDS: Sodium Chloride 0.9% 10 ML Syringe FLUSH SCH (13:05)
== END 2025-05-18 15:05 | disposition home or self-care (01) | DRG 807 ==
LOC: JD.OBCHECK 01:42 → JD.OB 01:46 → OBSVTOIN 02:25 → JD.OB 02:25 → JD.OBCHECK 02:25 → JD.OB 10:00
PROVIDERS: ADMIT Obstetrics & Gynecology; ATTEND Obstetrics & Gynecology
PROC: 10E0XZZ Delivery of Products of Conception, External Approach (ICD-10-PCS; principal; 2025-05-17)
PROC: 3E0R3BZ Introduction of Anesthetic Agent into Spinal Canal, Percutaneous Approach (ICD-10-PCS; principal; 2025-05-17)
DX: O80 Encounter for full-term uncomplicated delivery (principal); Z37.0 Single live birth; Z3A.37 37 weeks gestation of pregnancy; Z86.16 Personal history of COVID-19; Z79.899 Other long term (current) drug therapy; Z90.49 Acquired absence of other specified parts of digestive tract; Z98.890 Other specified postprocedural states
CPT/HCPCS: 36415; 51702; 59025; 59409; 84112; 85025; 86592; 86850; 86900; 86901; A9270-GY; J3490; J7120; J7999

== ENCOUNTER 2025-05-23 17:52 | Emergency (ER) | payer MEDICAID ==
[2025-05-23] MEDS ORDERED: Sodium Chloride 0.9% 10 ML Syringe FLUSH PRN (18:46)
[2025-05-23 18:53] LABS: BASOPHILS ABSOLUTE AUTO 0.0 K/mm3 (0.0-0.2); BASOPHILS PERCENT AUTO 0.8 % (0.0-1.0); EOSINOPHILS ABSOLUTE AUTO 0.1 K/mm3 (0.0-0.4); EOSINOPHILS PERCENT AUTO 2.3 % (0.0-6.0); IMMATURE GRAN ABSOLUTE AUTO 0.02 K/mm3 (0.00-0.05); IMMATURE GRAN PERCENT AUTO 0.4 % (0.0-0.4); LYMPHOCYTES ABSOLUTE AUTO 1.9 K/mm3 (1.0-4.8); LYMPHOCYTES PERCENT AUTO 39.7 % (24.0-44.0); MEAN PLATELET VOLUME 11.2 fl (9.4-12.3); MONOCYTES ABSOLUTE AUTO 0.4 K/mm3 (0.0-0.8); MONOCYTES PERCENT AUTO 8.1 % (0.0-8.0); NEUTROPHILS ABSOLUTE AUTO 2.3 K/mm3 (1.8-7.7); NEUTROPHILS PERCENT AUTO 48.7 % (41.0-71.0); NRBC ABSOLUTE 0.00 (0.00-0.02); NRBC PERCENT 0.0 % (0.0-0.2); PLATELET COUNT,PLT 261 K/mm3 (150-400); RED BLOOD CELL COUNT 5.23 M/mm3 (4.10-5.30); WHITE BLOOD CELL COUNT,WBC 4.79 K/mm3 (3.9-11.3)
[2025-05-23 19:02] LABS: A/G RATIO 0.7 (1-2); ALANINE AMINOTRANSFERASE,ALT 39.0 U/L (14-59); ASPARTATE AMNIOTRANSFERASE,AST 21.0 U/L (15-37); BILIRUBIN TOTAL 0.2 mg/dL (0.2-1.0); BLOOD UREA NITROGEN,BUN 13.0 mg/dL (7-18); CARBON DIOXIDE,CO2 27.0 mEq/L (21-32); CHLORIDE,CL 105.0 mEq/L (98-107); CREATININE 0.8 mg/dL (0.55-1.02); EST CRCL DRUG DOSING (CG) 85.83 mL/min; ESTIMATED GFR 102.0 mL/min (>60); GLUCOSE RANDOM 113.0 mg/dL (70-99); POTASSIUM,K 3.9 mEq/L (3.5-5.1); PROTEIN TOTAL,TP 8.5 g/dl (6.4-8.2); SODIUM,NA 141.0 mEq/L (136-145)
[2025-05-23 19:09] LABS: APPEARANCE,URINE CLEAR (Clear); GLUCOSE,URINE NEGATIVE (Negative); OCCULT BLOOD,URINE TRACE-LYSED (Negative)
[2025-05-23 19:17] LABS: EPITHELIAL CELLS,URINE 0-5 /hpf (0-5)
== END 2025-05-23 20:23 | disposition home or self-care (01) ==
LOC: JD.ED 17:52
DX: R51.9 Headache, unspecified (principal); R03.0 Elevated blood-pressure reading, without diagnosis of hypertension; E83.52 Hypercalcemia; Z79.899 Other long term (current) drug therapy
CPT/HCPCS: 36415; 70450; 80053; 81001; 83735; 85025; 93005; 99284; A9270; 93010; 99283